=== PATIENT | male | born 1960 | race African-American/Black ===

== ENCOUNTER 2017-03-11 11:30 | Inpatient (IN) | payer OTHER ==
[2017-03-11 14:59] VITALS: BMI 31.8
--- NOTE | 2017-03-11 15:28 | HP ---
CIWA Score - CIWA Score Nausea/Vomitin Muscle Tremors: 3 Anxiety: 3 Agitation: 3 Paroxysmal Sweats: 2 Orientation: 0-Oriented Tacttile Disturbances: 2-Mild Itch/Numbness/Burn Auditory Disturbances: 2-Mild Harshness/Frighten Visual Disturbances: 2-Mild Sensitivity Headache: 2-Mild CIWA-Ar Total Score: 22 Admission ROS BHS - HPI Chief Complaint: I NEED HELP TO STOP USING ALCOHOL,XANAX,COCAINE,MMTP Allergies/Adverse Reactions: Allergies Allergy/AdvReac Type Severity Reaction Status Date / Time No Known Allergies Allergy Verified 03/11/17 15:06 History of Present Illness: THIS 57 YEARS OLD MALE WITH BLACK MALE SEEKING HELP TO STOP USING ALCOHOL,XANAX, COCAINE,HEROIN DEPENDENCE,MMTP LAST DETOX [facility] 2010 LONGEST SOBRIETY 4 YEARS - Ebola screening Have you traveled outside of the country in the last 21 days: No Have you had contact with anyone from an Ebola affected area: No Have you been sick,other than usual withdrawal symptoms: No - Review of Systems Constitutional: Loss of Appetite, Malaise, Night Sweats, Weakness EENT: reports: Nose Congestion Respiratory: reports: No Symptoms reported, Other (ASTHMA) Cardiac: reports: Palpitations GI: reports: Nausea, Vomiting, Abdominal cramping : reports: No Symptoms Reported Musculoskeletal: reports: Back Pain, Muscle Pain Integumentary: reports: Dryness Neuro: reports: Headache, Tremors Endocrine: reports: No Symptoms Reported Hematology: reports: No Symptoms Reported, Other (HIV) Psychiatric: reports: Judgement Intact, Mood/Affect Appropiate, Orientated x3 ( BIPOLAR DISORDER), other Patient History - Patient Medical History Hx Anemia: No Hx Asthma: Yes (ON ALBUTEROL INHALER) Hx Chronic Obstructive Pulmonary Disease (COPD): No Hx Cancer: No Hx Cardiac Disorders: No Hx Congestive Heart Failure: No Hx Hypertension: No Hx Hypercholesterolemia: No Hx Pacemaker: No HX Cerebrovascular Accident: No Hx Seizures: No Hx Dementia: No Hx Diabetes: No Hx Gastrointestinal Disorders: No Hx Liver Disease: No Hx Genitourinary Disorders: No Hx Sexually Transmitted Disorders: No Hx Renal Disease (ESRD): No Hx Thyroid Disease: No Hx Human Immunodeficiency Virus (HIV): Yes (SINCE 2005) Hx Hepatitis C: No Hx Depression: No Hx Suicide Attempt: No Hx Bipolar Disorder: Yes (ON MED) Hx Schizophrenia: No Other Medical History: NO SUICIDAL,NO HOMICIDAL - Patient Surgical History Hx Appendectomy: Yes (LAP APPENDECTOMY 05/16) - PPD History Previous Implant?: Yes Documented Results: Negative w/o proof Implanted On Prior [facility] Admission?: Yes PPD to be Administered?: Yes - Smoking Cessation Smoking history: Current every day smoker Have you smoked in the past 12 months: Yes Aproximately how many cigarettes per day: 7 Cigars Per Day: 0 Hx Chewing Tobacco Use: No Initiated information on smoking cessation: Yes 'Breaking Loose' booklet given: 03/11/17 - Substance & Tx. History Hx Alcohol Use: Yes Hx Substance Use: Yes Substance Use Type: Alcohol, Heroin, Tranquilizers Hx Substance Use Treatment: Yes (2009 [facility]) - Substances Abused Alcohol Route: Oral Frequency: Daily Amount used: 1 AND 1/2 pints vodka Age of first use: 18 Date of Last Use: 03/11/17 Alprazolam (Xanax) Route: Oral Frequency: Daily Amount used: 8-10 mg Age of first use: 25 Date of Last Use: 03/11/17 Cocaine Route: Smoking Frequency: 1-3 times last 30 days Amount used: $40 Age of first use: 35 Date of Last Use: 03/07/17 Heroin Route: Inhalation Frequency: 1-3 times last 30 days Amount used: 1 and 1/2 bags Age of first use: 18 Date of Last Use: 03/10/17 Family Disease History - Family Disease History Family Disease History: CA: Mother (LUNG ), Other: Father (ALCOHOL, ) Admission Physical Exam [facility] - Vital Signs Vital Signs: Vital Signs - 24 hr 03/11/17 14:44 Temperature 97.1 F L Pulse Rate 96 H Respiratory 20 Rate Blood Pressure 105/68 - Physical General Appearance: Yes: Moderate Distress, Tremorous, Irritable, Sweating, Anxious HEENTM: Yes: Hearing grossly Normal, Normal ENT Inspection, FLORI Respiratory: Yes: Lungs Clear, Normal Breath Sounds, No Respiratory Distress Neck: Yes: Within Normal Limits Breast: Yes: Within Normal Limits Cardiology: Yes: Within Normal Limits, Regular Rhythm, Regular Rate, S1, S2 Abdominal: Yes: Within Normal Limits, Normal Bowel Sounds, Non Tender, Flat, Soft Genitourinary: Yes: Within Normal Limits Back: Yes: Muscle Spasm Musculoskeletal: Yes: Back pain, Muscle Pain Extremities: Yes: Normal Range of Motion, Tremors Neurological: Yes: shellac polisher II-XII NML intact, Fully Oriented, Alert, Motor Strength 5/5 Integumentary: Yes: Dry Lymphatic: Yes: Within Normal Limits - Diagnostic (1) Alcohol dependence with uncomplicated withdrawal Current Visit: Yes Status: Acute (2) Uncomplicated sedative, hypnotic or anxiolytic withdrawal Current Visit: Yes Status: Acute (3) Cocaine dependence Current Visit: Yes Status: Acute (4) HIV (human immunodeficiency virus infection) Current Visit: Yes Status: Acute (5) Methadone maintenance therapy patient Current Visit: Yes Status: Acute (6) Bipolar disorder Current Visit: Yes Status: Acute (7) Status post laparoscopic appendectomy Current Visit: Yes Status: Acute (8) Low back pain Current Visit: Yes Status: Acute (9) Asthma Current Visit: Yes Status: Acute Cleared for Admission [facility] - Detox or Rehab [facility] Level of Care: Medically Managed Detox Regimen/Protocol: Valium [facility] Breath Alcohol Content Breath Alcohol Content: 0.019 Urine Drug Screen - Results Drug Screen Negative: No Urine Drug Screen Results: NATHALIA-Cocaine, OPI-Opiates, BZO-Benzodiazepines, MTD- Methadone, OXY-Oxycodone
[2017-03-11] MEDS ORDERED: LOPERAMIDE HCL 2 MG CAPSULE PO PRN (15:52)
[2017-03-11] MEDS ORDERED: MAG HYDROX/AL HYDROX/SIMETH 30 ML UNIT-DOSE CUP PO PRN (15:52)
[2017-03-11] MEDS ORDERED: MAGNESIUM HYDROX 2400MG/30ML ORAL SUSPENSION 30 ML CUP PO PRN (15:52)
[2017-03-11] MEDS ORDERED: MAGNESIUM CITRATE 300 ML BOTTLE PO PRN (15:52)
[2017-03-11] MEDS ORDERED: MENTHOL/PHENOL 1 EACH UD MM PRN (15:52)
[2017-03-11] MEDS ORDERED: hydrOXYzine PAMOATE 50 MG CAPSULE (FP) PO PRN (15:52)
[2017-03-11] MEDS ORDERED: ACETAMINOPHEN 325 MG TABLET (FP) PO PRN (15:52)
[2017-03-11] MEDS ORDERED: guaiFENesin/D-METHORPHAN HB 10 ML UNIT-DOSE CUPS PO PRN (15:52)
[2017-03-11] MEDS ORDERED: P-EPHED 60MG/TRIPROLIDI 2.5MG TABLET PO PRN (15:52)
[2017-03-11] MEDS ORDERED: diazePAM 5 MG TABLET PO ONE (16:45)
[2017-03-11] MEDS: NICOTINE 21 MG/24 HOURS TOPICAL PATCH TD SCH (17:52)
[2017-03-11] MEDS: IBUPROFEN 400 MG TABLET (FP) PO PRN (18:21)
[2017-03-11] MEDS: NICOTINE POLACRILEX 2 MG GUM BC PRN (18:55)
[2017-03-11] MEDS: THIAMINE HCL 100 MG TABLET (FP) PO SCH (22:57)
[2017-03-11] MEDS: PATIENT'S OWN MEDICATION (NON-FORMULARY) (Efavirenz/Emtricitab/Tenofovir 1 TAB) PO SCH (22:57)
[2017-03-11] MEDS: diphenhydrAMINE HCL 50 MG CAPSULE PO PRN (22:59)
[2017-03-11] MEDS: diazePAM 5 MG TABLET PO SCH (23:00)
[2017-03-11 23:25] LABS: URINE APPEARANCE CLEAR; URINE BILIRUBIN NEGATIVE (NEGATIVE); URINE BLOOD NEGATIVE (NEGATIVE); URINE COLOR YELLOW; URINE GLUCOSE (UA) NEGATIVE (NEGATIVE); URINE KETONE NEGATIVE (NEGATIVE); URINE LEUK ESTERASE NEGATIVE (NEGATIVE); URINE NITRITE NEGATIVE (NEGATIVE); URINE PROTEIN NEGATIVE (NEGATIVE); URINE UROBILINOGEN NEGATIVE E.U./dl (0.2-1.0)
[2017-03-12] MEDS: diazePAM 5 MG TABLET PO SCH ×3 (06:15→22:50)
[2017-03-12] MEDS: diazePAM 5 MG TABLET PO PRN ×3 (08:36→17:43)
[2017-03-12] MEDS ORDERED: METHADONE HCL 10 MG TABLET PO SCH (08:45)
[2017-03-12] MEDS ORDERED: METHADONE HCL 40 MG DISPERSABLE TABLET ONE (09:30)
[2017-03-12] MEDS ORDERED: METHADONE HCL 10 MG TABLET ONE (09:30)
[2017-03-12] MEDS: METHADONE 200 MG, METHADONE 10 MG PO SCH (09:38)
[2017-03-12] MEDS: NICOTINE 21 MG/24 HOURS TOPICAL PATCH TD SCH (09:38)
[2017-03-12] MEDS: PRENATAL VITAMINS W/ FOLIC ACID TABLET (FP) PO SCH (09:39)
[2017-03-12] MEDS: NICOTINE POLACRILEX 2 MG GUM BC PRN ×4 (09:40→19:52)
[2017-03-12] MEDS: PATIENT'S OWN MEDICATION (NON-FORMULARY) (Umeclidinium Bromide [Incruse Ellipta] 62.5 MCG) IH SCH (09:43)
[2017-03-12] MEDS: ALBUTEROL SO4 6.7 GM HFA INHALER IH PRN ×2 (09:45→23:01)
[2017-03-12 10:09] LABS: MCH 30.1 pg (25.7-33.7); MCHC 32.5 g/dl (32.0-35.9); MEAN CELL VOLUME 92.5 fl (80-96); MEAN PLT VOLUME 8.2 fl (7.5-11.1); PLATELET COUNT 259 K/MM3 (134-434); RDW 15.7 % (11.9-15.9); WHITE BLOOD COUNT 6.4 K/mm3 (4.0-10.0)
--- NOTE | 2017-03-12 10:28 | CONSULT ---
[facility] Psychiatric Consult - Data Date of interview: 03/12/17 Admission source: [facility] Identifying data: Readmission to [facility] for this 57 y/o AA male seeking detox treatment on for alcohol,cocaine and xanax dependence.Patient is ,a father of three,homeless,unemployed and supported on SSI benefits. Substance Abuse History: - Smoking Cessation. Smoking history: Current every day smoker. Have you smoked in the past 12 months: Yes. Aproximately how many cigarettes per day: 7. Cigars Per Day: 0. Hx Chewing Tobacco Use: No. Initiated information on smoking cessation: Yes. 'Breaking Loose' booklet given : 03/11/17. - Substance & Tx. History. Hx Alcohol Use: Yes. Hx Substance Use : Yes. Substance Use Type: Alcohol, Heroin, Tranquilizers. Hx Substance Use Treatment: Yes (2009 [facility]). - Substances Abused. Alcohol. Route: Oral. Frequency: Daily. Amount used: 1 AND 1/2 pints vodka. Age of first use: 18. Date of Last Use: 03/11/17. Alprazolam (Xanax). Route: Oral. Frequency: Daily. Amount used: 8-10 mg. Age of first use: 25. Date of Last Use: . Cocaine. Route: Smoking. Frequency: 1-3 times last 30 days. Amount used: $40. Age of first use: 35. Date of Last Use: 03/07/17. Heroin. Route: Inhalation. Frequency: 1-3 times last 30 days. Amount used: 1 and 1/2 bags. Age of first use: 18. Date of Last Use: 03/10/17. Confirmed by patient. Medical History: HIV infection since 2005,bronchial asthma,GERD and a history of appendectomy (2016). Psychiatric History: Patient denies.No reported history of psychiatric hospitalizations.Diagnosed with Bipolar Disorder.Prescribed risperdal,seroquel and klonopin (doses not recalled by patient).Mr Palomino reports that he is followed by Dr Guillaume at [facility] in the [place].Patient denies history of suicide attempts.Currently on methadone maintenance (210 mg/day).Medications verified.Spoke with pharmacist (with patient's verbal authorization ) at [facility] ([phone]) : most recent filled scripts for seroquel 100 mg am/400 mg hs + risperdal 2 mg/hs + doxepin 50 mg/hs (on 02/20/17).No scripts needed at discharge. Physical/Sexual Abuse/Trauma History: Patient denies. Additional Comment: Urine Drug Screen Results: NATHALIA-Cocaine, OPI-Opiates, BZO- Benzodiazepines, MTD-Methadone, OXY-Oxycodone.Noted. Mental Status Exam - Mental Status Exam Alert and Oriented to: Time, Place, Person Cognitive Function: Good Patient Appearance: Well Groomed Mood: Hopeful, Euthymic Affect: Appropriate, Normal Range Patient Behavior: Appropriate, Cooperative Speech Pattern: Clear, Appropriate Voice Loudness: Normal Thought Process: Goal Oriented Thought Disorder: Not Present Hallucinations: Denies Suicidal Ideation: Denies Homicidal Ideation: Denies Insight/Judgement: Poor Sleep: Poorly, Difficulty falling asleep Appetite: Good Muscle strength/Tone: Normal Gait/Station: Normal Psychiatric Findings - Problem List ([place] 1, 2,3) (1) Alcohol dependence with uncomplicated withdrawal Current Visit: Yes Status: Acute (2) Cocaine dependence Current Visit: Yes Status: Acute (3) Uncomplicated sedative, hypnotic or anxiolytic withdrawal Current Visit: Yes Status: Acute (4) Opioid dependence on agonist therapy Current Visit: Yes Status: Acute (5) Nicotine dependence Current Visit: Yes Status: Acute (6) Bipolar disorder Current Visit: Yes Status: Chronic (7) HIV (human immunodeficiency virus infection) Current Visit: Yes Status: Chronic (8) Low back pain Current Visit: Yes Status: Chronic (9) Status post laparoscopic appendectomy Current Visit: Yes Status: Chronic (10) Asthma Current Visit: Yes Status: Acute (11) Insomnia Current Visit: Yes Status: Acute - Initial Treatment Plan Initial Treatment Plan: Psychoeducation.Detoxification.Medications : risperdal 2 mg po daily + seroquel 200 mg po hs.Side effects/benefits discussed with patient.Patient is made aware of potential for abnormal involuntary movements, dystonias/dyskinesias,neuroleptic malignant syndrome,endocrine complications ( sexual impotence,galactorrhea,gynecomastia) from use of risperdal and oversedation/falls,cardiac adverse events,metabolic syndrome possible with the utilization of seroquel.Patient reports good tolerability to these two drugs.Eager to get back on this combination.Observation.
[2017-03-12 10:41] LABS: ALBUMIN 3.9 g/dl (3.4-5.0); ALK PHOS 124 U/L (45-117); ANION GAP 9 (8-16); BILIRUBIN,TOTAL 0.3 mg/dL (0.2-1.0); CO2 26 mmol/L (21-32); CREATININE 1.1 mg/dL (0.7-1.3); GLUCOSE,RANDOM 108 mg/dL (74-106); SGOT/AST 21 U/L (15-37); SGPT/ALT 22 U/L (12-78); TOT PROT 7.3 g/dl (6.4-8.2)
[2017-03-12] MEDS: IBUPROFEN 400 MG TABLET (FP) PO PRN ×2 (10:53→17:43)
--- NOTE | 2017-03-12 11:20 | EKG ---
Test Reason : Blood Pressure : / mmHG Vent. Rate : 084 BPM Atrial Rate : 084 BPM P-R Int : 168 ms QRS Dur : 106 ms QT Int : 384 ms P-R-T Axes : 077 054 072 degrees QTc Int : 453 ms NORMAL SINUS RHYTHM POSSIBLE LEFT ATRIAL ENLARGEMENT INCOMPLETE RIGHT BUNDLE BRANCH BLOCK SEPTAL INFARCT , AGE UNDETERMINED ABNORMAL ECG NO PREVIOUS ECGS AVAILABLE Confirmed by DEDE FINLEY MD ([id number]) on 03/12/2017 11:20:19 AM Referred By: Bijan Will Confirmed By:DEDE FINLEY MD
--- NOTE | 2017-03-12 15:48 | PN ---
S CIWA - CIWA Score Nausea/Vomitin Muscle Tremors: 4-Moderate,w/Arms Extend Anxiety: 2 Agitation: 3 Paroxysmal Sweats: 4-Forehead w/Sweat Beads Orientation: 1-Uncertain about Date Tacttile Disturbances: 0-None Auditory Disturbances: 0-None Visual Disturbances: 3-Moderate Sensitivity Headache: 0-None Present CIWA-Ar Total Score: 20 BHS Progress Note (SOAP) Subjective: Tremors, Anxious, Interrupted Sleep, Body Aches, Back Ache. Objective: PT. A & O X 2 (DISORIENTED ABOUT DAY / DATE). PT. OBSERVED AMBULATING ON UNIT. 03/12/17 15:45 Vital Signs Temperature 98.1 F 03/12/17 13:56 Pulse Rate 97 H 03/12/17 13:56 Respiratory Rate 20 03/12/17 13:56 Blood Pressure 114/82 03/12/17 13:56 O2 Sat by Pulse Oximetry (%) Laboratory Last Values WBC 6.4 K/mm3 (4.0-10.0) 03/12/17 06:00 RBC 4.66 M/mm3 (4.00-5.60) 03/12/17 06:00 Hgb 14.0 GM/dL (11.7-16.9) 03/12/17 06:00 Hct 43.2 % (35.4-49) 03/12/17 06:00 MCV 92.5 fl (80-96) 03/12/17 06:00 MCHC 32.5 g/dl (32.0-35.9) 03/12/17 06:00 RDW 15.7 % (11.9-15.9) 03/12/17 06:00 Plt Count 259 K/MM3 (134-434) 03/12/17 06:00 MPV 8.2 fl (7.5-11.1) 03/12/17 06:00 Sodium 137 mmol/L (136-145) 03/12/17 06:00 Potassium 5.1 mmol/L (3.5-5.1) 03/12/17 06:00 Chloride 102 mmol/L (98-107) 03/12/17 06:00 Carbon Dioxide 26 mmol/L (21-32) 03/12/17 06:00 Anion Gap 9 (8-16) 03/12/17 06:00 BUN 13 mg/dL (7-18) 03/12/17 06:00 Creatinine 1.1 mg/dL (0.7-1.3) 03/12/17 06:00 Creat Clearance w eGFR > 60 (>60) 03/12/17 06:00 Random Glucose 108 mg/dL (74-106) H 03/12/17 06:00 Calcium 9.0 mg/dL (8.5-10.1) 03/12/17 06:00 Total Bilirubin 0.3 mg/dL (0.2-1.0) 03/12/17 06:00 AST 21 U/L (15-37) 03/12/17 06:00 ALT 22 U/L (12-78) 03/12/17 06:00 Alkaline Phosphatase 124 U/L (45-117) H 03/12/17 06:00 Total Protein 7.3 g/dl (6.4-8.2) 03/12/17 06:00 Albumin 3.9 g/dl (3.4-5.0) 03/12/17 06:00 Urine Color Yellow 03/11/17 22:50 Urine Appearance Clear 03/11/17 22:50 Urine pH 5.0 (5.0-8.0) 03/11/17 22:50 Ur Specific [place] 1.025 (1.005-1.025) 03/11/17 22:50 Urine Protein Negative (NEGATIVE) 03/11/17 22:50 Urine Glucose (UA) Negative (NEGATIVE) 03/11/17 22:50 Urine Ketones Negative (NEGATIVE) 03/11/17 22:50 Urine Blood Negative (NEGATIVE) 03/11/17 22:50 Urine Nitrite Negative (NEGATIVE) 03/11/17 22:50 Urine Bilirubin Negative (NEGATIVE) 03/11/17 22:50 Urine Urobilinogen Negative E.U./dl (0.2-1.0) 03/11/17 22:50 Ur Leukocyte Esterase Negative (NEGATIVE) 03/11/17 22:50 RPR Titer Nonreactive (NONREACTIVE) 03/12/17 06:00 LABS NOTED. Assessment: 03/12/17 15:47 WITHDRAWAL SYMPTOMS. Plan: CONTINUE DETOX. ADVISED PATIENT TO FOLLOW-UP WITH [facility] / REHAB MEDICAL PROVIDER AFTER DISCHARGE FROM DETOX FOR GENERAL MEDICAL ASSESSMENT AND FOR ABNORMAL ADMISSION LAB VALUES.
[2017-03-12] MEDS ORDERED: QUEtiapine FUMARATE 200 MG TABLET PO SCH (22:00)
[2017-03-12] MEDS: PATIENT'S OWN MEDICATION (NON-FORMULARY) (Efavirenz/Emtricitab/Tenofovir 1 TAB) PO SCH (22:49)
[2017-03-12] MEDS: diphenhydrAMINE HCL 50 MG CAPSULE PO PRN (22:50)
[2017-03-12] MEDS: risperiDONE 1 MG TABLET (FP) PO SCH (23:15)
[2017-03-12] MEDS: THIAMINE HCL 100 MG TABLET (FP) PO SCH (23:15)
[2017-03-13] MEDS ORDERED: METHADONE HCL 10 MG TABLET ONE (04:29)
[2017-03-13] MEDS ORDERED: METHADONE HCL 40 MG DISPERSABLE TABLET ONE (04:30)
[2017-03-13] MEDS: METHADONE 200 MG, METHADONE 10 MG PO SCH (05:20)
[2017-03-13] MEDS: diazePAM 5 MG TABLET PO PRN ×2 (05:25→17:15)
[2017-03-13] MEDS: NICOTINE POLACRILEX 2 MG GUM BC PRN ×5 (07:03→22:29)
[2017-03-13] MEDS: PRENATAL VITAMINS W/ FOLIC ACID TABLET (FP) PO SCH (10:49)
[2017-03-13] MEDS: diazePAM 5 MG TABLET PO SCH ×2 (10:49→22:26)
[2017-03-13] MEDS: PATIENT'S OWN MEDICATION (NON-FORMULARY) (Umeclidinium Bromide [Incruse Ellipta] 62.5 MCG) IH SCH (10:50)
[2017-03-13] MEDS: risperiDONE 1 MG TABLET (FP) PO SCH ×2 (10:50→22:27)
[2017-03-13] MEDS: NICOTINE 21 MG/24 HOURS TOPICAL PATCH TD SCH (10:50)
[2017-03-13] MEDS: IBUPROFEN 400 MG TABLET (FP) PO PRN ×2 (10:53→17:19)
--- NOTE | 2017-03-13 15:24 | PN ---
[facility] CIWA - CIWA Score Nausea/Vomitin-No Nausea/No Vomiting Muscle Tremors: 2 Anxiety: 4-Mod. Anxious/Guarded Agitation: 3 Paroxysmal Sweats: 1-Minimal Palms Moist Orientation: 0-Oriented Tacttile Disturbances: 0-None Auditory Disturbances: 2-Mild Harshness/Frighten Visual Disturbances: 3-Moderate Sensitivity Headache: 0-None Present CIWA-Ar Total Score: 15 S Progress Note (SOAP) Subjective: Interrupted sleep, Tremors, Anxious, Back Ache. Objective: PT. A & O X 3, OBSERVED AMBULATING ON UNIT. 03/13/17 15:23 Vital Signs Temperature 98.2 F 03/13/17 13:15 Pulse Rate 82 03/13/17 13:15 Respiratory Rate 20 03/13/17 13:15 Blood Pressure 107/76 03/13/17 13:15 O2 Sat by Pulse Oximetry (%) Laboratory Last Values WBC 6.4 K/mm3 (4.0-10.0) 03/12/17 06:00 RBC 4.66 M/mm3 (4.00-5.60) 03/12/17 06:00 Hgb 14.0 GM/dL (11.7-16.9) 03/12/17 06:00 Hct 43.2 % (35.4-49) 03/12/17 06:00 MCV 92.5 fl (80-96) 03/12/17 06:00 MCHC 32.5 g/dl (32.0-35.9) 03/12/17 06:00 RDW 15.7 % (11.9-15.9) 03/12/17 06:00 Plt Count 259 K/MM3 (134-434) 03/12/17 06:00 MPV 8.2 fl (7.5-11.1) 03/12/17 06:00 Sodium 137 mmol/L (136-145) 03/12/17 06:00 Potassium 5.1 mmol/L (3.5-5.1) 03/12/17 06:00 Chloride 102 mmol/L (98-107) 03/12/17 06:00 Carbon Dioxide 26 mmol/L (21-32) 03/12/17 06:00 Anion Gap 9 (8-16) 03/12/17 06:00 BUN 13 mg/dL (7-18) 03/12/17 06:00 Creatinine 1.1 mg/dL (0.7-1.3) 03/12/17 06:00 Creat Clearance w eGFR > 60 (>60) 03/12/17 06:00 POC Glucometer 105 UNITS (()) 03/13/17 05:18 Random Glucose 108 mg/dL (74-106) H 03/12/17 06:00 Calcium 9.0 mg/dL (8.5-10.1) 03/12/17 06:00 Total Bilirubin 0.3 mg/dL (0.2-1.0) 03/12/17 06:00 AST 21 U/L (15-37) 03/12/17 06:00 ALT 22 U/L (12-78) 03/12/17 06:00 Alkaline Phosphatase 124 U/L (45-117) H 03/12/17 06:00 Total Protein 7.3 g/dl (6.4-8.2) 03/12/17 06:00 Albumin 3.9 g/dl (3.4-5.0) 03/12/17 06:00 Urine Color Yellow 03/11/17 22:50 Urine Appearance Clear 03/11/17 22:50 Urine pH 5.0 (5.0-8.0) 03/11/17 22:50 Ur Specific [place] 1.025 (1.005-1.025) 03/11/17 22:50 Urine Protein Negative (NEGATIVE) 03/11/17 22:50 Urine Glucose (UA) Negative (NEGATIVE) 03/11/17 22:50 Urine Ketones Negative (NEGATIVE) 03/11/17 22:50 Urine Blood Negative (NEGATIVE) 03/11/17 22:50 Urine Nitrite Negative (NEGATIVE) 03/11/17 22:50 Urine Bilirubin Negative (NEGATIVE) 03/11/17 22:50 Urine Urobilinogen Negative E.U./dl (0.2-1.0) 03/11/17 22:50 Ur Leukocyte Esterase Negative (NEGATIVE) 03/11/17 22:50 RPR Titer Nonreactive (NONREACTIVE) 03/12/17 06:00 LABS NOTED. Assessment: 03/13/17 15:23 WITHDRAWAL SYMPTOMS. Plan: CONTINUE DETOX. ADVISED PATIENT TO FOLLOW-UP WITH HEALTH AND SAFETY ADVISOR AFTER DISCHARGE FROM DETOX FOR GENERAL MEDICAL ASSESSMENT AND FOR ABNORMAL ADMISSION LAB VALUES.
--- NOTE | 2017-03-13 19:00 | PN ---
[facility] Progress Note Note: Psychiatry Attending's note : Approached by patient. Issue : dose of seroquel. Mr Palomino insists on getting back on 400 mg/hs. " This is my dose for several years." Mr Palomino reports good tolerability to that dose. Gait is observed as steady.Normal vitals. Intervention : Increase seroquel 300 mg po hs.Ordered. Patient agrees with careplan.
[2017-03-13] MEDS ORDERED: QUEtiapine FUMARATE 200 MG TABLET PO SCH ×2 (22:00)
[2017-03-13] MEDS: THIAMINE HCL 100 MG TABLET (FP) PO SCH (22:27)
[2017-03-13] MEDS: PATIENT'S OWN MEDICATION (NON-FORMULARY) (Efavirenz/Emtricitab/Tenofovir 1 TAB) PO SCH (22:27)
[2017-03-13] MEDS: diphenhydrAMINE HCL 50 MG CAPSULE PO PRN (22:30)
[2017-03-14] MEDS ORDERED: METHADONE HCL 10 MG TABLET ONE (04:52)
[2017-03-14] MEDS ORDERED: METHADONE HCL 40 MG DISPERSABLE TABLET ONE (04:53)
[2017-03-14] MEDS: METHADONE 200 MG, METHADONE 10 MG PO SCH (05:20)
[2017-03-14] MEDS: diazePAM 5 MG TABLET PO PRN (05:20)
[2017-03-14] MEDS: NICOTINE POLACRILEX 2 MG GUM BC PRN ×4 (08:31→22:26)
[2017-03-14] MEDS ORDERED: QUEtiapine FUMARATE 100 MG TABLET (FP) PO SCH (10:00)
[2017-03-14] MEDS: diazePAM 5 MG TABLET PO SCH ×2 (10:23→22:22)
[2017-03-14] MEDS: PRENATAL VITAMINS W/ FOLIC ACID TABLET (FP) PO SCH (10:23)
[2017-03-14] MEDS: risperiDONE 1 MG TABLET (FP) PO SCH ×2 (10:23→22:23)
[2017-03-14] MEDS: NICOTINE 21 MG/24 HOURS TOPICAL PATCH TD SCH (10:23)
[2017-03-14] MEDS: PATIENT'S OWN MEDICATION (NON-FORMULARY) (Umeclidinium Bromide [Incruse Ellipta] 62.5 MCG) IH SCH (10:24)
[2017-03-14] MEDS: ALBUTEROL SO4 6.7 GM HFA INHALER IH PRN ×2 (10:29→22:24)
--- NOTE | 2017-03-14 14:50 | PN ---
[facility] Progress Note (SOAP) Subjective: Interrupted sleep, Back Ache, Hot / Cold sensations. Objective: PT. A & O X 3, OBSERVED AMBULATING ON UNIT. PT. REPORTS HISTORY OF COPD; PT. DENIES SOB AND CHEST PAIN. 03/14/17 14:45 Vital Signs Temperature 98.4 F 03/14/17 13:24 Pulse Rate 58 L 03/14/17 13:24 Respiratory Rate 20 03/14/17 13:24 Blood Pressure 111/66 03/14/17 13:24 O2 Sat by Pulse Oximetry (%) Laboratory Last Values WBC 6.4 K/mm3 (4.0-10.0) 03/12/17 06:00 RBC 4.66 M/mm3 (4.00-5.60) 03/12/17 06:00 Hgb 14.0 GM/dL (11.7-16.9) 03/12/17 06:00 Hct 43.2 % (35.4-49) 03/12/17 06:00 MCV 92.5 fl (80-96) 03/12/17 06:00 MCHC 32.5 g/dl (32.0-35.9) 03/12/17 06:00 RDW 15.7 % (11.9-15.9) 03/12/17 06:00 Plt Count 259 K/MM3 (134-434) 03/12/17 06:00 MPV 8.2 fl (7.5-11.1) 03/12/17 06:00 Sodium 137 mmol/L (136-145) 03/12/17 06:00 Potassium 5.1 mmol/L (3.5-5.1) 03/12/17 06:00 Chloride 102 mmol/L (98-107) 03/12/17 06:00 Carbon Dioxide 26 mmol/L (21-32) 03/12/17 06:00 Anion Gap 9 (8-16) 03/12/17 06:00 BUN 13 mg/dL (7-18) 03/12/17 06:00 Creatinine 1.1 mg/dL (0.7-1.3) 03/12/17 06:00 Creat Clearance w eGFR > 60 (>60) 03/12/17 06:00 POC Glucometer 110 UNITS (()) 03/14/17 06:25 Random Glucose 108 mg/dL (74-106) H 03/12/17 06:00 Calcium 9.0 mg/dL (8.5-10.1) 03/12/17 06:00 Total Bilirubin 0.3 mg/dL (0.2-1.0) 03/12/17 06:00 AST 21 U/L (15-37) 03/12/17 06:00 ALT 22 U/L (12-78) 03/12/17 06:00 Alkaline Phosphatase 124 U/L (45-117) H 03/12/17 06:00 Total Protein 7.3 g/dl (6.4-8.2) 03/12/17 06:00 Albumin 3.9 g/dl (3.4-5.0) 03/12/17 06:00 Urine Color Yellow 03/11/17 22:50 Urine Appearance Clear 03/11/17 22:50 Urine pH 5.0 (5.0-8.0) 03/11/17 22:50 Ur Specific [place] 1.025 (1.005-1.025) 03/11/17 22:50 Urine Protein Negative (NEGATIVE) 03/11/17 22:50 Urine Glucose (UA) Negative (NEGATIVE) 03/11/17 22:50 Urine Ketones Negative (NEGATIVE) 03/11/17 22:50 Urine Blood Negative (NEGATIVE) 03/11/17 22:50 Urine Nitrite Negative (NEGATIVE) 03/11/17 22:50 Urine Bilirubin Negative (NEGATIVE) 03/11/17 22:50 Urine Urobilinogen Negative E.U./dl (0.2-1.0) 03/11/17 22:50 Ur Leukocyte Esterase Negative (NEGATIVE) 03/11/17 22:50 RPR Titer Nonreactive (NONREACTIVE) 03/12/17 06:00 LABS NOTED. Assessment: 03/14/17 14:49 WITHDRAWAL SYMPTOMS. Plan: CONTINUE DETOX. ADVISED PATIENT TO FOLLOW-UP WITH DIGITAL DATA ANALYST AFTER DISCHARGE FROM DETOX FOR GENERAL MEIDCAL ASSESSMENT AND FOR ABNORMAL ADMISSION LAB VALUES.
[2017-03-14] MEDS: IBUPROFEN 400 MG TABLET (FP) PO PRN (19:27)
[2017-03-14] MEDS ORDERED: QUEtiapine FUMARATE 300 MG TABLET PO SCH (22:00)
[2017-03-14] MEDS: PATIENT'S OWN MEDICATION (NON-FORMULARY) (Efavirenz/Emtricitab/Tenofovir 1 TAB) PO SCH (22:22)
[2017-03-14] MEDS: THIAMINE HCL 100 MG TABLET (FP) PO SCH (22:24)
[2017-03-15] MEDS ORDERED: METHADONE HCL 10 MG TABLET ONE (02:38)
[2017-03-15] MEDS ORDERED: METHADONE HCL 40 MG DISPERSABLE TABLET ONE (02:39)
[2017-03-15] MEDS: METHADONE 200 MG, METHADONE 10 MG PO SCH (05:30)
[2017-03-15 06:20] VITALS: TEMP 96.8
--- NOTE | 2017-03-15 08:25 | DS ---
[facility] Detox Discharge Summary Admission Date: 03/11/17 Discharge Date: 03/15/17 - History Present History: Alcohol Dependence, Cocaine Dependence, MMTP Pertinent Past History: HIV infection - Physical Exam Results Vital Signs: Vital Signs Temperature 96.8 F L 03/15/17 06:19 Pulse Rate 71 03/15/17 06:19 Respiratory Rate 18 03/15/17 06:19 Blood Pressure 145/89 03/15/17 06:19 O2 Sat by Pulse Oximetry (%) Pertinent Admission Physical Exam Findings: Withdrawal sx. Laboratory Last Values WBC 6.4 K/mm3 (4.0-10.0) 03/12/17 06:00 RBC 4.66 M/mm3 (4.00-5.60) 03/12/17 06:00 Hgb 14.0 GM/dL (11.7-16.9) 03/12/17 06:00 Hct 43.2 % (35.4-49) 03/12/17 06:00 MCV 92.5 fl (80-96) 03/12/17 06:00 MCHC 32.5 g/dl (32.0-35.9) 03/12/17 06:00 RDW 15.7 % (11.9-15.9) 03/12/17 06:00 Plt Count 259 K/MM3 (134-434) 03/12/17 06:00 MPV 8.2 fl (7.5-11.1) 03/12/17 06:00 Sodium 137 mmol/L (136-145) 03/12/17 06:00 Potassium 5.1 mmol/L (3.5-5.1) 03/12/17 06:00 Chloride 102 mmol/L (98-107) 03/12/17 06:00 Carbon Dioxide 26 mmol/L (21-32) 03/12/17 06:00 Anion Gap 9 (8-16) 03/12/17 06:00 BUN 13 mg/dL (7-18) 03/12/17 06:00 Creatinine 1.1 mg/dL (0.7-1.3) 03/12/17 06:00 Creat Clearance w eGFR > 60 (>60) 03/12/17 06:00 POC Glucometer 105 UNITS (()) 03/15/17 05:29 Random Glucose 108 mg/dL (74-106) H 03/12/17 06:00 Calcium 9.0 mg/dL (8.5-10.1) 03/12/17 06:00 Total Bilirubin 0.3 mg/dL (0.2-1.0) 03/12/17 06:00 AST 21 U/L (15-37) 03/12/17 06:00 ALT 22 U/L (12-78) 03/12/17 06:00 Alkaline Phosphatase 124 U/L (45-117) H 03/12/17 06:00 Total Protein 7.3 g/dl (6.4-8.2) 03/12/17 06:00 Albumin 3.9 g/dl (3.4-5.0) 03/12/17 06:00 Urine Color Yellow 03/11/17 22:50 Urine Appearance Clear 03/11/17 22:50 Urine pH 5.0 (5.0-8.0) 03/11/17 22:50 Ur Specific [place] 1.025 (1.005-1.025) 03/11/17 22:50 Urine Protein Negative (NEGATIVE) 03/11/17 22:50 Urine Glucose (UA) Negative (NEGATIVE) 03/11/17 22:50 Urine Ketones Negative (NEGATIVE) 03/11/17 22:50 Urine Blood Negative (NEGATIVE) 03/11/17 22:50 Urine Nitrite Negative (NEGATIVE) 03/11/17 22:50 Urine Bilirubin Negative (NEGATIVE) 03/11/17 22:50 Urine Urobilinogen Negative E.U./dl (0.2-1.0) 03/11/17 22:50 Ur Leukocyte Esterase Negative (NEGATIVE) 03/11/17 22:50 RPR Titer Nonreactive (NONREACTIVE) 03/12/17 06:00 labs noted - Treatment Hospital Course: Detox Protocol Followed, Detoxed Safely, Responded well, Discharged Condition Good, Rehab Referral Accepted - Medication Discharge Medications: Ambulatory Orders Albuterol Sulfate Inhaler - [Ventolin Hfa Inhaler -] 2 inh PO Q6H PRN 03/11/17 Doxepin HCl [Sinequan -] 50 mg PO HS 03/11/17 Efavirenz/Emtricitab/Tenofovir [Atripla -] 1 tab PO HS 03/11/17 Quetiapine Fumarate [Seroquel -] 100 mg PO HS 03/11/17 Quetiapine Fumarate [Seroquel -] 400 mg PO HS 03/11/17 Umeclidinium [place] [Incruse Ellipta] 62.5 mcg IH DAILY 03/11/17 - Diagnosis (1) Alcohol dependence with uncomplicated withdrawal Current Visit: Yes Status: Acute (2) Asthma Current Visit: Yes Status: Acute Qualifiers: Asthma severity: mild intermittent Asthma complication type: uncomplicated Qualified Code(s): J45.20 - Mild intermittent asthma, uncomplicated (3) Cocaine dependence Current Visit: Yes Status: Acute Qualifiers: Substance use status: uncomplicated Qualified Code(s): F14.20 - Cocaine dependence, uncomplicated (4) Insomnia Current Visit: Yes Status: Acute (5) Nicotine dependence Current Visit: Yes Status: Acute (6) Opioid dependence on agonist therapy Current Visit: Yes Status: Acute (7) Uncomplicated sedative, hypnotic or anxiolytic withdrawal Current Visit: Yes Status: Acute (8) HIV (human immunodeficiency virus infection) Current Visit: Yes Status: Chronic (9) Bipolar disorder Current Visit: Yes Status: Chronic - AMA Did Patient Leave Against Medical Advice: No
[2017-03-15 09:18] VITALS: BP 125/85; PULSE 84
[2017-03-15] MEDS ORDERED: diazePAM 5 MG TABLET PO SCH (10:00)
== END 2017-03-15 12:11 | disposition home or self-care (01) | DRG 773 ==
LOC: YASAS 11:30 → Y3N 15:56
PROVIDERS: ADMIT Internal Medicine Addiction Medicine; ATTEND Internal Medicine Addiction Medicine
PROC: HZ2ZZZZ Detoxification Services for Substance Abuse Treatment (ICD-10-PCS; principal; 2017-03-15)
DX: F11.20 Opioid dependence, uncomplicated (principal); F13.230 Sedative, hypnotic or anxiolytic dependence with withdrawal, uncomplicated; F10.230 Alcohol dependence with withdrawal, uncomplicated; F14.20 Cocaine dependence, uncomplicated; F17.210 Nicotine dependence, cigarettes, uncomplicated; F31.9 Bipolar disorder, unspecified; G47.00 Insomnia, unspecified; Z21 Asymptomatic human immunodeficiency virus [HIV] infection status; J45.20 Mild intermittent asthma, uncomplicated; M54.5 Low back pain; Z59.0 Homelessness
CPT/HCPCS: 36415; 80053; 81003; 85027; 86593; 93005; 93010; J2794